=== PATIENT | female | born 1990 | race Caucasian/White ===

== ENCOUNTER 2019-09-27 07:53 | Outpatient (CLI) | payer OTHER, SELFPAY ==
--- NOTE | ~2019-09-27 | MR_ITS ---
EXAMINATION: MR ankle RT wo con DATE: 09/27/2019 09:02 INDICATION: Right ankle pain. Disorder of bone and cartilage. TECHNIQUE: Magnetic resonance imaging (MRI) of the right ankle was performed without intravenous cont rast. Sequences included sagittal PD-weighted FS FSE, sagittal PD-weighted FSE, coronal PD-weighted F S FSE, coronal PD-weighted FSE, axial PD-weighted FS FSE, and axial PD-weighted FSE. COMPARISON: Right ankle radiographs 09/14/2019 FINDINGS: Medial ankle ligaments: The superficial and deep components of the deltoid ligament are intact. Lateral ankle ligaments: There are sprains of the anterior and posterior talofibular ligaments, calcaneofibular ligament, and anterior and posterior tibiofibular ligaments characterized by thickening and increased signal intens ity. Tendons: The Achilles tendon is normal. The peroneal tendons, anterior ankle tendons, and medial ankle tendons are normal. Fluid in flexor hallucis longus tendon sheath is not out of proportion to the volume of ankle joint fluid. Plantar fascia: Normal. Bones/other: Bone alignment is normal. No fracture. The talar dome is normal. The muscles are normal. Fluid: There are ankle and subtalar joint effusions that demonstrate heterogeneous signal intensity. There i s subcutaneous edema about the ankle. IMPRESSION: 1. Lateral ankle sprain. 2. Ankle and subtalar joint effusions. Reviewed, dictated and finalized at location A.
== END 2019-09-27 07:54 | disposition home or self-care (01) ==
PROVIDERS: Visit Provider Orthopaedic Surgery
DX: M89.9 Disorder of bone, unspecified (principal); M94.9 Disorder of cartilage, unspecified; S93.401A Sprain of unspecified ligament of right ankle, initial encounter; M25.471 Effusion, right ankle
CPT/HCPCS: 73721